=== PATIENT | female | born 1995 | race Caucasian/White ===

== ENCOUNTER 2018-06-11 23:15 | Emergency (ER) | payer MEDICAID ==
[~2018-06-11] VITALS: Ht 160 cm; Wt 63.5 kg
[~2018-06-11 23:15] MED LIST: PREN-96 PO
[2018-06-12 00:32] VITALS: BP 117/76
== END 2018-06-12 01:46 | disposition home or self-care (01) ==
LOC: ER 23:18
DX: S91.114A Laceration without foreign body of right lesser toe(s) without damage to nail, initial encounter (principal); Z88.5 Allergy status to narcotic agent; W01.198A Fall on same level from slipping, tripping and stumbling with subsequent striking against other object, initial encounter; Y93.89 Activity, other specified; Y99.8 Other external cause status; Y92.89 Other specified places as the place of occurrence of the external cause
CPT/HCPCS: 12001

== ENCOUNTER 2018-07-22 16:38 | Emergency (ER) | payer MEDICAID ==
[~2018-07-22] VITALS: Ht 160 cm; Wt 64.4 kg
[2018-07-22 19:53] LABS: Eosinophils # (auto) 0.2 uL; Eosinophils % (auto) 4.9 % (0.0-7.0); Hemoglobin 11.5 g/dL (12.2-16.2); Monocytes # (auto) 0.5 uL; White Blood Cell 4.3 10^3/uL (4.4-10.8)
[2018-07-22 19:55] LABS: Basophils # (auto) 0 uL; Basophils % (auto) 1.1 % (0.0-2.0); Hematocrit 35.5 % (36.0-46.0); Lymphocytes # (auto) 1.6 uL; Lymphocytes % (auto) 36.4 % (10.0-50.0); Mean Corpuscular Hgb Conc. 32.3 g/dL (32.0-36.0); Mean Corpuscular Volume 74.4 fL (80.0-100.0); Monocytes % (auto) 12.2 % (0.0-12.0); Neutrophils % (auto) 45.4 % (37.0-80.0); Nucleated Red Blood Cells % 0.3 %; Platelet Count (auto) 229 10^3/uL (140-450); Red Blood Cells 4.77 10^6/uL (4.0-5.20)
[2018-07-22 20:10] LABS: Red Cell Distribution Width 24.5 % (11.8-14.3)
[2018-07-22 20:17] LABS: Alanine Aminotransferase 57 U/L (13-56); Albumin 3.5 g/dL (3.4-5.0); Alkaline Phosphatase 85 U/L (45-117); Anion Gap 5 (5-15); Aspartate Aminotransferase 30 U/L (15-37); BUN/Creatinine Ratio 15.4; Bilirubin, Total 0.2 mg/dL (0.2-1.0); Blood Urea Nitrogen 10 mg/dL (7-18); Calcium 8.6 mg/dL (8.5-10.1); Carbon Dioxide 24 mmol/L (21-32); Chloride 107 mmol/L (98-107); GFR African American 144 mL/min; GFR Non-African American 119 mL/min; Glucose 82 mg/dL (74-106); Sodium 136 mmol/L (136-145); Total Protein 8.5 g/dL (6.4-8.2)
[2018-07-22 20:23] LABS: Urine Bacteria NONE SEEN /hpf (None Seen); Urine Blood 1+ /uL (Negative); Urine Mucus FEW (None Seen); Urine WBC 55 /hpf (0 - 5)
[2018-07-23 02:20] VITALS: BP 114/63
== END 2018-07-23 01:52 | disposition home or self-care (01) ==
LOC: ER 16:43
DX: N39.0 Urinary tract infection, site not specified (principal); F41.9 Anxiety disorder, unspecified; Z88.5 Allergy status to narcotic agent; Z79.899 Other long term (current) drug therapy
CPT/HCPCS: 36415; 80053; 81001; 81025; 84484; 85025; 93005